=== PATIENT | female | born 1940 | race Two or more races ===

== ENCOUNTER 2025-03-31 23:32 | Inpatient (IN) | payer MEDICARE, MEDICAID ==
[~2025-03-31] VITALS: Ht 149.9 cm; Wt 52.4 kg
[2025-03-31] MEDS: hydrALAZINE HCL 20 MG/ML VL IV ONE (01:45)
--- NOTE | 2025-04-01 00:02 | ED.PDOC ---
HPI Comments 84-year-old female with a diabetes mellitus type 2, hypertension, dyslipidemia presented to the ER for the evaluation of occipital headache high blood pressure. Patient does alone and reports that the [facility] caregiver checked her blood pressure this morning, systolic was 160s, patient took her Coreg with a blood pressure went up to 190 systolic, therefore she 20 mg an hour back. Came into the ER, patient also reports taking lisinopril. She reports pressure-type headache in the occipital region for 1 hour, nonradiating, denies nausea/vomiting/photophobia/chest pain for shortness of breaths at this time. Denies CHF. Patient was also experiencing 5 episodes of diarrhea earlier this morning, nonbloody, reports mild abdominal pain. Patient seen and examined. Heart rate in 60s, sinus rhythm, blood pressure 220 systolic. Has 1+ pitting edema. Lungs are clear to auscultation. Home medication: Lisinopril, Coreg, metformin, atorvastatin Chief Complaint: High Blood Pressure Time Seen by MD: 23:36 Primary Care Provider: SHEFALI Hunter Notes: Nurses Notes Allergies: Coded Allergies: NO KNOWN ALLERGIES (Unverified , 03/31/25) Information Source: Patient Mode of Arrival: Ambulatory Severity: Mild Past Medical History PAST MEDICAL HISTORY: HTN Past Medical History (Other): Diabetes, hypertension, dyslipidemia Surgical History: Denies all surgeries OFFICE MACHINE TECHNICIAN History: No Pertinent OFFICE MACHINE TECHNICIAN History Family History Family History: Unknown Social History Smoker: Non-Smoker Lives In: Home Constitutional: denies: chills, diaphoresis, fatigue, fever, malaise, sweats, weakness, others EENTM: denies: blurred vision, double vision, ear bleeding, ear discharge, ear drainage, ear pain, ear ringing, eye pain, eye redness, hearing loss, mouth pain, mouth swelling, nasal discharge, nose bleeding, nose congestion, nose pain, photophobia, tearing, throat pain, throat swelling, voice changes, others Respiratory: denies: cough, hemoptysis, orthopnea, SOB at rest, shortness of breath, SOB with excertion, stridor, wheezing, others Cardiovascular: reports: palpitations Gastrointestinal: reports: abdominal pain, diarrhea Genitourinary: denies: abnormal vagina bleeding, burning, dyspareunia, dysuria, flank pain, frequency, hematuria, incontinence, pain, , vagina discharge, urgency, others Neurological: reports: headache Musculoskeletal: denies: back pain, gout, joint pain, joint swelling, muscle pain, muscle stiffness, neck pain, others Integumetry: denies: bruises, change in color, change in hair/nails, dryness, laceration, lesions, lumps, rash, wounds, others Allergic/Immunocompromised: denies: Difficulty Healing, Frequent Infections, Hives, Itching, others Hematologic/Lymphatic: denies: anemia, blood clots, easy bleeding, easy bruising, swollen glands, others Endocrine: denies: excessive hunger, excessive sweating, excessive thirst, excessive urination, flushing, intolerance to cold, intolerance to heat, unexplained weight gain, unexplained weight loss, others Psychiatric: denies: anxiety, bipolar disorder, depression, hopeless, panic disorder, schizophrenia, sleepless, suicidal, others Physical Exam General Appearance: No Apparent Distress, Normal HEENT: Normal ENT Inspection, Pharynx Normal, TMs Normal Neck: Full Range of Motion, Non-Tender, Normal, Normal Inspection Respiratory: Chest Non-Tender, Lungs Clear, No Accessory Muscle Use, No Respiratory Distress, Normal Breath Sounds Cardiovascular: No Edema, No JVD, No Murmur, No Gallop, Normal Peripheral Pulses, Regular Rate/Rhythm Breast Exam: Deferred Gastrointestinal: No Organomegaly, Non Tender, No Pulsatile Mass, Normal Bowel Sounds, Soft Genitalia: Deferred Pelvic: Deferred Rectal: Deferred Extremities: No calf tenderness, Normal capillary refill, Normal inspection, Normal range of motion, Non-tender, No pedal edema Musculoskeletal : Apperance: Normal Neurologic: Alert, cdl instructor II-XII nml as Tested, No Motor Deficits, Normal Affect, Normal Mood, No Sensory Deficits Cerebellar Function: Normal Reflexes: Normal Skin: Dry, Normal Color, Warm Lymphatic: No Adenopathy Was a procedure done? Was a procedure done?: No CP Differential Dx Differential Diagnosis: Heart Failure Differential Diagnosis: CHF, Medical NonCompliance Differential Diagnosis: Angina X-Ray, Labs, Meds, VS Vital Signs Date Time Temp Pulse Resp B/P (MAP) Pulse Ox O2 Delivery O2 Flow Rate FiO2 04/01/25 04:18 98/49 (65) 04/01/25 02:47 98.0 61 18 110/61 (77) 98 98.0 04/01/25 02:01 179/61 04/01/25 01:25 98.0 54 17 179 (100) 96 98.0 03/31/25 23:33 97.9 54 20 223/78 96 97.9 03/31/25 01:45 Lab Test 04/01/25 00:50 03/31/25 23:57 Range/Units Troponin I High Sensitivity 6 < 3 L </=34 ng/L White Blood Count 11.0 H 4.4-10.8 10^3/uL Red Blood Count 4.62 4.0-5.20 10^6/uL Hemoglobin 13.3 12.2-16.2 g/dL Hematocrit 40.2 36.0-46.0 % Mean Corpuscular Volume 86.9 80.0-100.0 fL Mean Corpuscular Hemoglobin 28.7 28.0-32.0 pg Mean Corpuscular Hemoglobin Concent 33.1 32.0-36.0 g/dL Red Cell Distribution Width 14.4 H 11.8-14.3 % Platelet Count 325 140-450 10^3/uL Mean Platelet Volume 8.7 6.9-10.8 fL Neutrophils (%) (Auto) 58.5 37.0-80.0 % Lymphocytes (%) (Auto) 28.4 10.0-50.0 % Monocytes (%) (Auto) 8.4 0.0-12.0 % Eosinophils (%) (Auto) 3.9 0.0-7.0 % Basophils (%) (Auto) 0.8 0.0-2.0 % Neutrophils # (Auto) 6.4 1.6-8.6 10 ^3/uL Lymphocytes # (Auto) 3.1 0.4-5.4 10 ^3/uL Monocytes # (Auto) 0.9 0-1.3 10 ^3/uL Eosinophils # (Auto) 0.4 0-0.8 10 ^3/uL Basophils # (Auto) 0.1 0-0.2 10 ^3/uL Nucleated Red Blood Cells 0.1 % Sodium Level 141 136-145 mmol/L Potassium Level 4.1 3.5-5.1 mmol/L Chloride Level 103 98-107 mmol/L Carbon Dioxide Level 26 20-31 mmol/L Anion Gap 12 5-15 Blood Urea Nitrogen 12 9-23 mg/dL Creatinine 0.69 0.550-1.02 mg/dL Glomerular Filtration Rate Calc 87 >90 mL/min BUN/Creatinine Ratio 17.4 10.0-20.0 Serum Glucose 92 74-106 mg/dL Calcium Level 9.6 8.7-10.4 mg/dL B-Type Natriuretic Peptide 46.61 0-100 pg/mL Thyroid Stimulating Hormone (TSH) 4.88 H 0.55-4.78 uIU/mL Current Medications Medications (Trade) Dose Ordered Sig/Mona Route Start Time Stop Time Status Last Admin Tramadol HCl (Ultram) 50 mg ONCE ONCE PO 04/01/25 01:15 04/01/25 02:15 DC 04/01/25 02:53 Clonidine HCl (Catapres Tablet) 0.2 mg ONCE ONCE PO 04/01/25 02:00 04/01/25 02:01 DC 04/01/25 02:01 X-Ray, Labs, Meds, VS Comment Head CT shows 1. No acute territorial infarct, intracranial hemorrhage, or mass effect. 2. Age-related involutional changes. Chronic microvascular changes. 3. Left sphenoid sinus disease. 4. If clinical symptoms persist, MRI may be beneficial in further evaluation. Chest x-ray shows The lungs are clear. The cardiomediastinal silhouette is unremarkable. No pleural effusion or pneumothorax. No acute osseous abnormality. Images Reviewed?: Images reviewed and evaluated by me Time of 1ST Reevaluation: 02:00 Reevaluation 1ST: Unchanged Consultation: PCP Patient Education/Counseling: Diagnosis, Treatment, Prognosis, Need For Follow Up Family Education/Counseling: Diagnosis, Treatment, Prognosis, Need For Follow Up SEPSIS Sepsis Screen Date sepsis recognized/suspect: Mar 31, 2025 Time Sepsis recognized/suspect: 2334 Recent Procedure: No On Antibiotic Therapy: No Respiratory Rate >20: No Heart Rate >90: No Temp<36 C (96.8 F) or >38.3 C: No SBP <90 or MAP <65 mmHG: No New Acute Mental Status Change: No Is the patient on CPAP, BIPAP,: No Physician Orders Electrocardigram (03/31/25 23:39) Chest Xray 1 View (03/31/25 23:39) Drafting Clerk (03/31/25 ) Head Without Contrast (03/31/25 23:53) Vital Signs Date Time Temp Pulse Resp B/P (MAP) Pulse Ox O2 Delivery O2 Flow Rate FiO2 04/01/25 04:18 98/49 (65) 04/01/25 02:47 98.0 61 18 110/61 (77) 98 98.0 04/01/25 02:01 179/61 04/01/25 01:25 98.0 54 17 179/61 (100) 96 98.0 03/31/25 23:33 97.9 54 20 223/78 96 97.9 03/31/25 01:45 179/61 Laboratory Tests Test 03/31/25 23:57 White Blood Count 11.0 10^3/uL (4.4-10.8) H Medications Medications Dose Ordered Sig/Mona Route Start Time Stop Time Status Last Admin Dose Admin Clonidine HCl 0.2 mg ONCE ONCE PO 04/01/25 02:00 04/01/25 02:01 DC 04/01/25 02:01 Tramadol HCl 50 mg ONCE ONCE PO 04/01/25 01:15 04/01/25 02:15 DC 04/01/25 02:53 Departure 1 Departure Time of Disposition: 02:30 Impression: Primary Impression: Hypertensive crisis without congestive heart failure Disposition: 30 STILL A PATIENT Condition: Stable Comments Patient will be admitted for management of antihypertensive regimen, uncontro lled hypothyroidism. Critical Care Note Critical Care Time?: No Stability Stability form required: No Heart Score Heart Score: Heart Score Response (Comments) Value History Slightly Suspicious 0 EKG N/A 0 Age >65 2 Risk Factors >3 or Hx ASHD 2 Troponin Normal limit 0 Total 4 MARV CLOUD RESIDENT Apr 01, 2025 00:02
--- NOTE | 2025-04-01 00:21 | DVH ---
CHEST RADIOGRAPH Indication: htn Technique: Single frontal view of the chest was obtained Comparison: None FINDINGS/IMPRESSION: The lungs are clear. The cardiomediastinal silhouette is unremarkable. No pleural effusion or pneumo thorax. No acute osseous abnormality.
--- NOTE | 2025-04-01 00:29 | DVH ---
CT HEAD WITHOUT CONTRAST INDICATION: htn crisis, headache EXAM DATE: 03/31/2025 11:55 PM COMPARISON: None RADIATION DOSE: CTDIvol: 49.01 mGy, DLP: 49.01 mGy*cm PROCEDURE: CT scans of the head were obtained from the vertex to the skull base. Sagittal and coronal reconstructions were provided. All CT scans at this medical facility are performed using dose modulation techniques as appropriate t o a performed exam including the following: Automated exposure control was utilized; adjustment of th e MA and/or KV according to patient size; and use of iterative reconstruction technique. FINDINGS: No acute territorial infarct, intracranial hemorrhage, or mass effect. There are global involutional changes with compensatory prominence of the ventricles and sulci. Patchy periventricular and subcorti carolann white matter hypoattenuation is nonspecific but may be related to small vessel ischemic disease. Bilateral lens implants. There is a fluid level within the left sphenoid sinus. Mild mucosal thicken ing within the right sphenoid sinus. The osseous structures are unremarkable. IMPRESSION: 1. No acute territorial infarct, intracranial hemorrhage, or mass effect. 2. Age-related involutional changes. Chronic microvascular changes. 3. Left sphenoid sinus disease. 4. If clinical symptoms persist, MRI may be beneficial in further evaluation.
[2025-04-01 00:34] LABS: Chloride 103 mmol/L (98-107); Potassium 4.1 mmol/L (3.5-5.1); Sodium 141 mmol/L (136-145)
[2025-04-01 00:35] LABS: Anion Gap 12 (5-15); Calcium 9.6 mg/dL (8.7-10.4); Carbon Dioxide 26 mmol/L (20-31); Hematocrit 40.2 % (36.0-46.0); Hemoglobin 13.3 g/dL (12.2-16.2); Mean Corpuscular Hemoglobin 28.7 pg (28.0-32.0); Mean Corpuscular Volume 86.9 fL (80.0-100.0); Nucleated Red Blood Cells % 0.1 %
[2025-04-01 00:40] LABS: BUN/Creatinine Ratio 17.4 (10.0-20.0); Blood Urea Nitrogen 12 mg/dL (9-23); Glucose 92 mg/dL (74-106)
[2025-04-01] MEDS ORDERED: DEXTROSE (50%) 50ML SYRG IV PRN (04:45)
[2025-04-01] MEDS ORDERED: MORPHINE SULFATE INJ 2 MG/ml SYRG IV PRN (04:45)
[2025-04-01] MEDS ORDERED: NITROGLYCERIN 0.4 MG SL TAB SL PRN (04:45)
[2025-04-01] MEDS ORDERED: ONDANSETRON HCL 4 MG/2 ML VIAL IV PRN (04:45)
--- NOTE | 2025-04-01 05:00 | DVHHP2 ---
History of Present Illness Reason for Visit: High blood pressure History of Present Illness 84-year-old female presents for evaluation of high blood pressure. Patient reports being compliant with her medication but it has been running high over the past three days. Today was running in the 180s and she developed an occipital headache. Denies blurred vision. She states that currently in the headache has subsided. Denies chest pain or shortness for breath. Past Medical History Hypertension, diabetes, dyslipidemia Past Surgical History Denies Family History Noncontributory Smoke: No ALCOHOL: none Drugs: None Lives: with Family Review of Systems Review of Systems Review of systems are currently negative otherwise dressing HPI. Allergies: Coded Allergies: NO KNOWN ALLERGIES (Unverified , 03/31/25) Medications Current Medications Medications Dose Ordered Sig/Mona Route Start Time Stop Time Status Last Admin Dose Admin Aspirin 81 mg DAILY PO 04/01/25 10:00 Atorvastatin Calcium 10 mg HS PO 04/01/25 22:00 Carvedilol 3.125 mg Q12HR PO 04/01/25 10:00 Lisinopril 20 mg DAILY PO 04/01/25 10:00 Hydralazine HCl 10 mg Q6HP PRN IV 04/01/25 04:45 Diagnostic Test (Pha) 1 strip ACHS 04/01/25 07:00 Insulin Human Regular ACHS SC 04/01/25 07:00 Dextrose 50 ml UD PRN IV 04/01/25 04:45 Ondansetron HCl 4 mg Q4HP PRN IV 04/01/25 04:45 Enoxaparin Sodium 40 mg DAILY SC 04/01/25 10:00 UNV Acetaminophen 650 mg Q6HP PRN PO 04/01/25 04:45 Nitroglycerin 0.4 mg Q5MINP PRN SL 04/01/25 04:45 Morphine Sulfate 2 mg Q30M PRN IV 04/01/25 04:45 Exam Vital Signs Vital Signs Date Time Temp Pulse Resp B/P (MAP) Pulse Ox O2 Delivery O2 Flow Rate FiO2 04/01/25 04:18 98/49 (65) 04/01/25 02:47 98.0 61 18 98 98.0 Exam Gen: 84-year-old female in mild distress Skin: Warm, dry, normal color and texture, no rash. HEENT: Normocephalic atraumatic, mucous membranes moist and pink. Neck: Cervical and supraclavicular nodes normal without enlargement, trachea is midline, thyroid gland is normal without masses. Pulmonary: Clear to auscultation and percussion bilaterally. Cardiac: Regular rate and rhythm. No murmur Abdomen: Soft, nontender, nondistended, bowel sounds present all 4 quadrants, no guarding, no rigidity, no organomegaly. Extremities: No cyanosis, clubbing, no edema Neuro: Cranial nerves II through XII grossly intact, normal affect and speech, no focal motor deficits. Labs/Xrays ORDERING PHYSICIAN: MARV CLOUD RESIDENT PROCEDURE(s): HWOCT - HEAD WITHOUT CONTRAST REASON: htn crisis, headache ORDER NUMBER(s): [id number], ACCESSION NUMBER(s): [id number] CT HEAD WITHOUT CONTRAST INDICATION: htn crisis, headache EXAM DATE: 03/31/2025 11:55 PM COMPARISON: None RADIATION DOSE: CTDIvol: 49.01 mGy, DLP: 49.01 mGy*cm PROCEDURE: CT scans of the head were obtained from the vertex to the skull base. Sagittal and coronal reconstructions were provided. All CT scans at this medical facility are performed using dose modulation techniques as appropriate to a performed exam including the following: Automated exposure control was utilized; adjustment of the MA and/or KV according to patient size; and use of iterative reconstruction technique. FINDINGS: No acute territorial infarct, intracranial hemorrhage, or mass effect. There are global involutional changes with compensatory prominence of the ventricles and sulci. Patchy periventricular and subcortical white matter hypoattenuation is nonspecific but may be related to small vessel ischemic disease. Bilateral lens implants. There is a fluid level within the left sphenoid sinus. Mild mucosal thickening within the right sphenoid sinus. The osseous structures are unremarkable. IMPRESSION: 1. No acute territorial infarct, intracranial hemorrhage, or mass effect. 2. Age-related involutional changes. Chronic microvascular changes. 3. Left sphenoid sinus disease. 4. If clinical symptoms persist, MRI may be beneficial in further evaluation. Labs Test 04/01/25 00:50 03/31/25 23:57 Range/Units Troponin I High Sensitivity 6 </=34 ng/L White Blood Count 11.0 H 4.4-10.8 10^3/uL Red Blood Count 4.62 4.0-5.20 10^6/uL Hemoglobin 13.3 12.2-16.2 g/dL Hematocrit 40.2 36.0-46.0 % Mean Corpuscular Volume 86.9 80.0-100.0 fL Mean Corpuscular Hemoglobin 28.7 28.0-32.0 pg Mean Corpuscular Hemoglobin Concent 33.1 32.0-36.0 g/dL Red Cell Distribution Width 14.4 H 11.8-14.3 % Platelet Count 325 140-450 10^3/uL Mean Platelet Volume 8.7 6.9-10.8 fL Neutrophils (%) (Auto) 58.5 37.0-80.0 % Lymphocytes (%) (Auto) 28.4 10.0-50.0 % Monocytes (%) (Auto) 8.4 0.0-12.0 % Eosinophils (%) (Auto) 3.9 0.0-7.0 % Basophils (%) (Auto) 0.8 0.0-2.0 % Neutrophils # (Auto) 6.4 1.6-8.6 10 ^3/uL Lymphocytes # (Auto) 3.1 0.4-5.4 10 ^3/uL Monocytes # (Auto) 0.9 0-1.3 10 ^3/uL Eosinophils # (Auto) 0.4 0-0.8 10 ^3/uL Basophils # (Auto) 0.1 0-0.2 10 ^3/uL Nucleated Red Blood Cells 0.1 % Sodium Level 141 136-145 mmol/L Potassium Level 4.1 3.5-5.1 mmol/L Chloride Level 103 98-107 mmol/L Carbon Dioxide Level 26 20-31 mmol/L Anion Gap 12 5-15 Blood Urea Nitrogen 12 9-23 mg/dL Creatinine 0.69 0.550-1.02 mg/dL Glomerular Filtration Rate Calc 87 >90 mL/min BUN/Creatinine Ratio 17.4 10.0-20.0 Serum Glucose 92 74-106 mg/dL Calcium Level 9.6 8.7-10.4 mg/dL B-Type Natriuretic Peptide 46.61 0-100 pg/mL Thyroid Stimulating Hormone (TSH) 4.88 H 0.55-4.78 uIU/mL SEPSIS Sepsis Screen Date sepsis recognized/suspect: Mar 31, 2025 Time Sepsis recognized/suspect: 2334 Recent Procedure: No On Antibiotic Therapy: No Respiratory Rate >20: No Heart Rate >90: No Temp<36 C (96.8 F) or >38.3 C: No SBP <90 or MAP <65 mmHG: No New Acute Mental Status Change: No Is the patient on CPAP, BIPAP,: No Physician Orders Electrocardigram (03/31/25 23:39) Chest Xray 1 View (03/31/25 23:39) Manager Clinical Services (03/31/25 ) Head Without Contrast (03/31/25 23:53) Aspirin Tablet (04/01/25 10:00) Atorvastatin (Lipitor) (04/01/25 22:00) Carvedilol Tablet (Coreg Tablet) (04/01/25 10:00) Lisinopril Tablet (Zestril Tablet) (04/01/25 10:00) Hydralazine Injection (Apresoline Inject (04/01/25 04:45) Basic Metabolic Panel (04/02/25 04:00) Glucose Blood (Accu-Chek Comfort Curve T (04/01/25 07:00) Insulin R (Human) (Insulin R) (04/01/25 07:00) Dextrose 50% Syringe (04/01/25 04:45) Admit (04/01/25 04:41) Ondansetron Hcl (Zofran) (04/01/25 04:45) Enoxaparin Sodium (Lovenox) (04/01/25 10:00) Cardiac Diet-2gna,Lofat,Lochol (04/01/25 Breakfast) Echo 2d Mode Cardiac Dop (04/01/25 04:41) Condition: Fair (04/01/25 04:41) Acetaminophen Tablet (Tylenol Tablet) (04/01/25 04:45) Bedrest With Bathroom Privileg (04/01/25 04:41) Nitroglycerin Sublingual (Ntrostat Subli (04/01/25 04:45) Morphine Sulfate Injection (04/01/25 04:45) Stat Ekg For Chest Pain (04/01/25 04:41) Notify Md Of Changes From Base (04/01/25 04:41) Service Order Clerk For 24 Hours (04/01/25 04:41) Emergency Dysrhythmia Protocol (04/01/25 04:41) Rhythm Strips Once Every Shift (04/01/25 04:41) Oxygen By Nasal Cannula (04/01/25 04:41) Vital Signs Date Time Temp Pulse Resp B/P (MAP) Pulse Ox O2 Delivery O2 Flow Rate FiO2 04/01/25 04:18 98/49 (65) 04/01/25 02:47 98.0 61 18 110/61 (77) 98 98.0 04/01/25 02:01 179/61 04/01/25 01:25 98.0 54 17 179/61 (100) 96 98.0 03/31/25 23:33 97.9 54 20 223/78 96 97.9 Laboratory Tests Test 03/31/25 23:57 White Blood Count 11.0 10^3/uL (4.4-10.8) H Medications Medications Dose Ordered Sig/Mona Route Start Time Stop Time Status Last Admin Dose Admin Clonidine HCl 0.2 mg ONCE ONCE PO 04/01/25 02:00 04/01/25 02:01 DC 04/01/25 02:01 0.2 MG Tramadol HCl 50 mg ONCE ONCE PO 04/01/25 01:15 04/01/25 02:15 DC 04/01/25 02:53 50 MG Assessment/Plan Assessment/Plan Assessment Hypertensive urgency Diabetes mellitus Dyslipidemia Plan Admit the patient to telemetry to the hospitalist Echocardiogram pending As needed antihypertensives Resume home medications Continue treatment per orders Plan discussed with: Patient My Orders Orders - BRAULIO JOLLY AGACNDerrek Procedure Category Date Status Time Aspirin Tablet PHA 04/01/25 In Process 10:00 Atorvastatin (Lipitor) PHA 04/01/25 In Process 22:00 Carvedilol Tablet PHA 04/01/25 In Process (Coreg Tablet) 10:00 Lisinopril Tablet PHA 04/01/25 In Process (Zestril Tablet) 10:00 Hydralazine Injection PHA 04/01/25 In Process (Apresoline Inject 04:45 Basic Metabolic Panel LAB 04/02/25 Verified 04:00 Glucose Blood PHA 04/01/25 In Process (Accu-Chek Comfort 07:00 Insulin R (Human) PHA 04/01/25 In Process (Insulin R) 07:00 Dextrose 50% Syringe PHA 04/01/25 In Process 04:45 Admit ADMIT 04/01/25 Transmitted 04:41 Ondansetron Hcl PHA 04/01/25 In Process (Zofran) 04:45 Enoxaparin Sodium PHA 04/01/25 Pending (Lovenox) 10:00 Cardiac DIET 04/01/25 Transmitted Diet-2gna,Lofat,Lochol Breakfast Echo 2d Mode Cardiac US 04/01/25 Logged DOP 04:41 Condition: Fair [facility] 04/01/25 In Process 04:41 Acetaminophen Tablet [facility] 04/01/25 In Process (Tylenol Tablet) 04:45 Bedrest With Bathroom [facility] 04/01/25 In Process Privileg 04:41 Nitroglycerin [facility] 04/01/25 In Process Sublingual (Ntrostat 04:45 Morphine Sulfate [facility] 04/01/25 In Process Injection 04:45 Stat Ekg For Chest [facility] 04/01/25 In Process Pain 04:41 Notify Md Of Changes [facility] 04/01/25 In Process From Base 04:41 Service Order Clerk For [facility] 04/01/25 In Process 24 Hours 04:41 Emergency Dysrhythmia [facility] 04/01/25 In Process Protocol 04:41 Rhythm Strips Once [facility] 04/01/25 In Process Every Shift 04:41 Oxygen By Nasal RT 04/01/25 Transmitted Cannula 04:41 Date of Service: Apr 01, 2025 Billing Provider: BRAULIO JOLLY Common Visit Codes: [id number] INP/OBS CARE (HIGH) BRAULIO JOLLY Apr 01, 2025 05:00
[2025-04-01] MEDS: ACCU-CHEK COMFORT CURVE STRIP VI SCH (06:41)
[2025-04-01] MEDS: InsuLIN REG 1unit/0.01ml Soln (100units/ml) SC SCH (06:52)
[2025-04-01 08:00] VITALS: PULSE 44; RESP 12; O2SAT 95
[2025-04-01] MEDS: CARVEDILOL 3.125 MG TAB PO SCH (10:00)
[2025-04-01] MEDS: ENOXAPARIN SOD 40 MG/0.4 ML SYRINGE SC SCH (10:00)
[2025-04-01] MEDS: LISINOPRIL 20 MG TAB PO SCH (10:00)
[2025-04-01 13:15] VITALS: PULSE 53
[2025-04-01 13:30] VITALS: PULSE 76; RESP 18; O2SAT 94
[2025-04-01] MEDS ORDERED: EZET-10 PO (14:37)
[2025-04-01] MEDS ORDERED: SIMV10TA20 PO (14:37)
[2025-04-01] MEDS ORDERED: DICL1GEL73 TOP (14:37)
[2025-04-01] MEDS ORDERED: CHOL50007 PO (14:37)
[2025-04-01] MEDS ORDERED: LIDO1PAD55 TOP (14:37)
[2025-04-01] MEDS ORDERED: LISI20TA56 PO (14:37)
[2025-04-01] MEDS ORDERED: METF-370 PO (14:37)
[2025-04-01] MEDS ORDERED: ASPI-325 PO (14:37)
[2025-04-01] MEDS ORDERED: CARV3.1240 PO (14:37)
--- NOTE | 2025-04-01 15:52 | DVHPN2 ---
Subjective Patient denies any symptoms. Reviewed: Care Plan, H&P, Labs, Medications Changes from previous H/P or p: No Changes General: Per HPI Objective Vitals Vital Signs Date Time Temp Pulse Resp B/P (MAP) Pulse Ox O2 Delivery O2 Flow Rate FiO2 04/01/25 12:00 54 16 141/52 (81) 93 04/01/25 10:00 97.7 97.7 04/01/25 08:00 Room Air* 0 21 General Appearance: Alert, Oriented X3, Cooperative, No acute distress HEENT: Atraumatic, PERRLA Lungs: Clear to auscultation, Normal air movement Cardiovascular: Normal S1, Normal S2 Abdomen: Normal bowel sounds, Soft, No tenderness, No hepatospenomegaly Rectal: Normal inspection Musculoskeletal: Normal sensory function, Normal motor function Neuro: Normal gait, Normal speech Skin: Dry, Intact Psych/Mental Status: Mental status NL, Mood NL Medications Current Medications Medications Dose Ordered Sig/Mona Route Start Time Stop Time Status Last Admin Dose Admin Aspirin 81 mg DAILY PO 04/01/25 10:00 04/01/25 12:55 81 MG Atorvastatin Calcium 10 mg HS PO 04/01/25 22:00 Carvedilol 3.125 mg Q12HR PO 04/01/25 10:00 Lisinopril 20 mg DAILY PO 04/01/25 10:00 Hydralazine HCl 10 mg Q6HP PRN IV 04/01/25 04:45 Diagnostic Test (Pha) 1 strip ACHS 04/01/25 07:00 04/01/25 12:44 1 STRIP Insulin Human Regular ACHS SC 04/01/25 07:00 04/01/25 12:57 3 UNITS Dextrose 50 ml UD PRN IV 04/01/25 04:45 Ondansetron HCl 4 mg Q4HP PRN IV 04/01/25 04:45 Enoxaparin Sodium 40 mg DAILY SC 04/01/25 10:00 Acetaminophen 650 mg Q6HP PRN PO 04/01/25 04:45 Nitroglycerin 0.4 mg Q5MINP PRN SL 04/01/25 04:45 Morphine Sulfate 2 mg Q30M PRN IV 04/01/25 04:45 Laboratory Results Laboratory Tests 03/31/25 23:57 Chemistry Test 03/31/25 23:57 Calcium Level 9.6 mg/dL (8.7-10.4) Cardiac Markers Test 03/31/25 23:57 B-Type Natriuretic Peptide 46.61 pg/mL (0-100) HgA1c, TSH Test 03/31/25 23:57 Thyroid Stimulating Hormone (TSH) 4.88 uIU/mL (0.55-4.78) H Labs and/or images reviewed: Labs reviewed by me, Image(s) reviewed by me Assessment/Plan Assessment/Plan Impression: -hypertensive crisis -bradycardia -diabetes mellitus -dyslipidemia Plan: -stop carvedilol, continue lisinopril . Add amlodipine 10 mg p.o. daily -echocardiogram, pending results -regular insulin sliding scale -continue statin -reassess for discharge in a.m. once blood pressure and heart rate has improved Total time spent with patient discussing and formulating plan of care: 35 minutes. This medical document was created using an electronic medical record system with [employer] dictation system. Although this document has been carefully reviewed, there may still be some phonetic and typographical errors. These areas are purely typographical due to imperfections of the software programs, and do not reflect any compromise in the patient's medical care. Plan discussed with: Patient, Other (RN) My Orders Orders - FADI BENAVIDEZ NP Procedure Category Date Status Time Urinalysis LAB 04/01/25 Logged 15:07 Date of Service: Apr 01, 2025 Billing Provider: FADI BENAVIDEZ NP Common Visit Codes: [id number] INP/OBS CARE(HIGH) FADI BENAVIDEZ NP Apr 01, 2025 15:52
[2025-04-01 18:32] LABS: Urine Budding Yeast OCCASIONAL /hpf (None Seen); Urine Protein, UAD Negative (Negative)
[2025-04-01 20:00] VITALS: PULSE 58; RESP 16; O2SAT 97
[2025-04-01 21:00] VITALS: BP 142/61; PULSE 54; RESP 17; TEMP 97.5; O2SAT 94
[2025-04-01] MEDS: ATORVASTATIN 20 MG TAB PO SCH (21:49)
[2025-04-02] VITALS (8 sets, daily range): BP systolic 127–171; BP diastolic 66–83; PULSE 54–111; RESP 17–20; TEMP 97.9–98.8; O2SAT 93–96
[2025-04-02 07:30] LABS: Chloride 104 mmol/L (98-107); Potassium 4.0 mmol/L (3.5-5.1); Sodium 140 mmol/L (136-145)
[2025-04-02 07:31] LABS: Anion Gap 10 (5-15); Calcium 9.1 mg/dL (8.7-10.4); Carbon Dioxide 26 mmol/L (20-31)
[2025-04-02 07:36] LABS: BUN/Creatinine Ratio 17.3 (10.0-20.0); Blood Urea Nitrogen 13 mg/dL (9-23)
[2025-04-02 07:41] LABS: Glucose 129 mg/dL (74-106)
[2025-04-02] MEDS: hydrALAZINE HCL 20 MG/ML VL IV PRN (11:17)
--- NOTE | 2025-04-02 13:30 | DVHDS2 ---
Discharge Summary Date of Admission Apr 01, 2025 at 04:41 Date of Discharge: Apr 02, 2025 Admitting Diagnosis Hypertensive crisis with congestive heart failure Labs/Diagnostic Data: Laboratory Results Test 04/02/25 11:10 04/02/25 06:40 04/01/25 17:51 04/01/25 00:50 POC Glucose 135 mg/dl (70-106) Sodium Level 140 mmol/L (136-145) Potassium Level 4.0 mmol/L (3.5-5.1) Chloride Level 104 mmol/L (98-107) Carbon Dioxide Level 26 mmol/L (20-31) Anion Gap 10 (5-15) Blood Urea Nitrogen 13 mg/dL (9-23) Creatinine 0.75 mg/dL (0.550-1.02) Glomerular Filtration Rate Calc 79 mL/min (>90) BUN/Creatinine Ratio 17.3 (10.0-20.0) Serum Glucose 129 mg/dL (74-106) Calcium Level 9.1 mg/dL (8.7-10.4) Urine Color Colorless (Yellow) Urine Clarity Clear (Clear) Urine pH 6.5 (5.0-9.0) Urine Specific [place] 1.005 (1.001-1.035) Urine Protein Negative (Negative) Urine Ketones Negative (Negative) Urine Blood Negative /uL (Negative) Urine Nitrite Negative (Negative) Urine Bilirubin Negative (Negative) Urine Urobilinogen Normal mg/dL (Negative) Urine Leukocyte Esterase Negative /uL (Negative) Urine RBC None seen /hpf (0 - 4) Urine Microscopic WBC 1 /HPF (0-5) Urine Squamous Epithelial Cells Few /hpf (<5) Urine Bacteria Mod /hpf (None Seen) Urine Yeast (Budding) Occasional /hpf (None Urine Glucose Normal mg/dL (Normal) Troponin I High Sensitivity 6 ng/L (</=34) Test 03/31/25 23:57 White Blood Count 11.0 10^3/uL (4.4-10.8) Red Blood Count 4.62 10^6/uL (4.0-5.20) Hemoglobin 13.3 g/dL (12.2-16.2) Hematocrit 40.2 % (36.0-46.0) Mean Corpuscular Volume 86.9 fL (80.0-100.0) Mean Corpuscular Hemoglobin 28.7 pg (28.0-32.0) Mean Corpuscular Hemoglobin Concent 33.1 g/dL (32.0-36.0) Red Cell Distribution Width 14.4 % (11.8-14.3) Platelet Count 325 10^3/uL (140-450) Mean Platelet Volume 8.7 fL (6.9-10.8) Neutrophils (%) (Auto) 58.5 % (37.0-80.0) Lymphocytes (%) (Auto) 28.4 % (10.0-50.0) Monocytes (%) (Auto) 8.4 % (0.0-12.0) Eosinophils (%) (Auto) 3.9 % (0.0-7.0) Basophils (%) (Auto) 0.8 % (0.0-2.0) Neutrophils # (Auto) 6.4 10 ^3/uL (1.6-8.6) Lymphocytes # (Auto) 3.1 10 ^3/uL (0.4-5.4) Monocytes # (Auto) 0.9 10 ^3/uL (0-1.3) Eosinophils # (Auto) 0.4 10 ^3/uL (0-0.8) Basophils # (Auto) 0.1 10 ^3/uL (0-0.2) Nucleated Red Blood Cells 0.1 % B-Type Natriuretic Peptide 46.61 pg/mL (0-100) Thyroid Stimulating Hormone (TSH) 4.88 uIU/mL (0.55-4.78) Other Laboratory Tests 04/02/25 06:40 03/31/25 23:57 Brief Hx & Hospital Course: HPI Comments 84-year-old female with a diabetes mellitus type 2, hypertension, dyslipidemia presented to the ER for the evaluation of occipital headache high blood pressure. Patient does alone and reports that the [facility] caregiver checked her blood pressure this morning, systolic was 160s, patient took her Coreg with a blood pressure went up to 190 systolic, therefore she 20 mg an hour back. Came into the ER, patient also reports taking lisinopril. She reports pressure-type headache in the occipital region for 1 hour, nonradiating, denies nausea/vomiting/photophobia/chest pain for shortness of breaths at this time. Denies CHF. Course of hospitalization: Patient's heart rate was decreasing as low as 44 beats per minute. Discussion with the patient reveals that she has had problems with hypertension as well as low heart rate in the past. Patient's carvedilol will be held in the hospital. Patient was started on antihypertensives including amlodipine 10 mg p.o. daily as well as lisinopril 20 mg p.o. daily. Patient's blood pressure remained somewhat uncontrolled today, for which the patient received IV hydralazine which did help the patient's blood pressure but also had a side effect of elevated heart rate up to 110 beats per minute. Echocardiogram reveals normal ejection fraction. Patient will be discharged home with lisinopril 40 mg p.o. daily as well as amlodipine 10 mg p.o. daily with the patient instructed to stop taking carvedilol and follow up with her PCP in 1-2 weeks as well as her underwriting support specialist at next available appointment. Patient is agreeable with discharge plan. All questions answered. Physical examination General: Alert and Oriented x3. No acute distress. Well-nourished. Eyes: EOMI. Anicteric. HENT: Moist mucous membranes. Lungs: Clear to auscultation bilaterally. No accessory muscle use. Cardiovascular: Regular rate and rhythm. No murmur. No JVD. Abdomen: Soft, non-tender and non-distended. No palpable masses. Extremities: No edema. Non-tender. Skin: No rashes or lesions. Warm. Neurologic: No focal neurological deficits. CN II-XII grossly intact, but not individually tested. Psychiatric: Cooperative. Appropriate mood and affect. Total time spent with patient discussing and formulating plan of care: 35 minutes. This medical document was created using an electronic medical record system with [employer] dictation system. Although this document has been carefully reviewed, there may still be some phonetic and typographical errors. These areas are purely typographical due to imperfections of the software programs, and do not reflect any compromise in the patient's medical care. Condition at Discharge: Fair Final Diagnosis/Problems List Accelerated hypertension, bradycardia -hypertensive crisis -bradycardia -diabetes mellitus -dyslipidemia Discharge Disposition: Home Discharge Instruct/Medications Diet: Cardiac 2g Na,low cholest Activity: No Restrictions, As Tolerated Follow Up/Referral: Follow up with PCP, Dr. Santana in one week Follow up with Cardiology at next available appointment Medications: Stop carvedilol given persistent bradycardia Amlodipine 10 mg p.o. daily Increase lisinopril to 40 mg p.o. daily Scheduled Aspirin (Aspirin Low Dose), 1 TAB PO DAILY, (Reported) Carvedilol (Carvedilol), 1 TAB PO BID, (Reported) Cholecalciferol (Vitamin D3), 1 CAP PO DAILY, (Reported) Ezetimibe (Ezetimibe), 1 TAB PO DAILY, (Reported) Lisinopril (Lisinopril), 1 TAB PO BID, (Reported) Metformin Hydrochloride (Metformin Hcl), 1 TAB PO BID, (Reported) Scheduled PRN Diclofenac Sodium (Topical) (Diclofenac Sodium), GM TOP DAILYPRN PRN for pain, (Reported) Miscellaneous Medications Lidocaine (Lidocaine), TOP, (Reported) Simvastatin (Simvastatin), 1 TAB PO, (Reported) 36 Discharge Statement: "Patient was advised to return to the ER or call 911 if any headaches, dizziness, shortness of breath, chest pain, abdominal pain, bleeding, fevers, or worsening of medical condition. Patient was counseled about treatment plan, medications, possible side effects, patientverbalized understanding. All questions were answered to the best of my ability. This discharge took greater then 30 minutes in planning, reviewing documentation, counseling the patient, and discussing with other team members." ASSESSMENT ASSESSMENT Assessment Accelerated hypertension, bradycardia Date of Service: Apr 02, 2025 Billing Provider: FADI BENAVIDEZ NP Common Visit Codes: 21850-HHC/OBS DISCH DAY >30min FADI BENAVIDEZ NP Apr 02, 2025 13:30
[2025-04-02] MEDS: LISINOPRIL 20 MG TAB PO ONE (13:43)
[2025-04-02] MEDS ORDERED: LISI20TA56 PO (15:29)
[2025-04-02] MEDS ORDERED: AMLO1TAB23 PO (15:29)
[2025-04-02] MEDS: CARVEDILOL 3.125 MG TAB PO ONE (15:48)
[2025-04-02] MEDS: ACETAMINOPHEN 325 MG TAB PO PRN (18:07)
[2025-04-02] MEDS ORDERED: ESTR0.3T PO (20:55)
[2025-04-03] VITALS (8 sets, daily range): BP systolic 134–157; BP diastolic 69–86; PULSE 69–112; RESP 16–20; TEMP 97.8–98.6; O2SAT 93–97
[2025-04-03] MEDS: LISINOPRIL 20 MG TAB PO SCH (10:22)
--- NOTE | 2025-04-03 11:19 | DVHSR ---
APPROVED REPORT EXAM: Two-dimensional and M-mode echocardiogram with Doppler and color Doppler. Blood Pressure: 95/49 mmHg INDICATION Hypertension RISK FACTORS Height: 4' 11", DIMENSIONS LVDd4.4 (3.8-5.7cm)LA (2D)2.8 (1.9-4.0cm)Aortic Root2.9 (2.0-3.7cm) LVDs3.1 (2.5-4.0cm)LA (MM) (1.9-4.0cm)Aortic Cusp Exc1.8 (1.5-2.0cm) EF (%) 57.0 (55-70%)Rt. Atrium3.1 (1.9-4.0cm)Asc. Aorta cm IVSd1.1 (0.7-1.1cm)RV (D) (1.8-2.4cm) PWd1.0 (0.7-1.1cm) Mitral Valve MitralMitral Stenosis E wave0.80m/sMV Mean GR.mmHg A wave1.00m/sMV Peak GR.mmHg E/A ratio0.82D MVAcm2 Aortic Valve Aortic ValveAortic Stenosis V10.90m/Ma[place] Mean GR.3mmHg V21.20m/[place] Peak GR.6mmHg LVOT Diameter2.0 (1.8-2.4cm)Doppler AVA2.36cm2 Pulmonic Valve V20.70m/s Tricuspid Valve TR Velocity2.30m/s [id number] Other Information Quality : Technically LimitedRhythm : Technically limited study due to body habitus. Conclusion Technically good study. Sinus rhythm. Mild left atrial enlargement. Valves are normal. EF of 60% with normal RV function. Mild TR. [id number] aortic insufficiency. No pericardial effusion masses or vegetations.
--- NOTE | 2025-04-03 15:35 | DVHPN2 ---
Subjective Patient denies any symptoms. Reviewed: Care Plan, H&P, Labs, Medications Changes from previous H/P or p: No Changes General: Per HPI Objective Vitals Vital Signs Date Time Temp Pulse Resp B/P (MAP) Pulse Ox O2 Delivery O2 Flow Rate FiO2 04/03/25 10:22 155/80 04/03/25 09:00 97.9 83 18 96 97.9 04/03/25 08:00 Room Air* 0 21 Intake/Output Intake and Output 04/03/25 07:00 Intake Total 600 ml Balance 600 ml Intake Oral 600 ml # Voids 8 General Appearance: Alert, Oriented X3, Cooperative, No acute distress HEENT: Atraumatic, PERRLA Lungs: Clear to auscultation, Normal air movement Cardiovascular: Normal S1, Normal S2 Abdomen: Normal bowel sounds, Soft, No tenderness, No hepatospenomegaly Rectal: Normal inspection Musculoskeletal: Normal sensory function, Normal motor function Neuro: Normal gait, Normal speech Skin: Dry, Intact Psych/Mental Status: Mental status NL, Mood NL Medications Current Medications Medications Dose Ordered Sig/Mona Route Start Time Stop Time Status Last Admin Dose Admin Aspirin 81 mg DAILY PO 04/01/25 10:00 04/03/25 10:22 81 MG Atorvastatin Calcium 10 mg HS PO 04/01/25 22:00 04/02/25 21:44 10 MG Diagnostic Test (Pha) 1 strip ACHS 04/01/25 07:00 04/03/25 11:39 1 STRIP Insulin Human Regular ACHS SC 04/01/25 07:00 04/03/25 11:41 3 UNITS Dextrose 50 ml UD PRN IV 04/01/25 04:45 Ondansetron HCl 4 mg Q4HP PRN IV 04/01/25 04:45 Enoxaparin Sodium 40 mg DAILY SC 04/01/25 10:00 04/03/25 10:23 40 MG Acetaminophen 650 mg Q6HP PRN PO 04/01/25 04:45 04/03/25 08:55 650 MG Nitroglycerin 0.4 mg Q5MINP PRN SL 04/01/25 04:45 Lisinopril 40 mg DAILY PO 04/03/25 10:00 04/03/25 10:22 40 MG Metformin HCl 500 mg BIDWM PO 04/03/25 18:00 Nifedipine 60 mg DAILY PO 04/04/25 10:00 Laboratory Results Laboratory Tests 03/31/25 23:57 04/02/25 06:40 Urinalysis Test 04/01/25 17:51 Urine Color Colorless (Yellow) Urine Clarity Clear (Clear) Urine pH 6.5 (5.0-9.0) Urine Specific [place] 1.005 (1.001-1.035) Urine Protein Negative (Negative) Urine Ketones Negative (Negative) Urine Blood Negative /uL (Negative) Urine Nitrite Negative (Negative) Urine Bilirubin Negative (Negative) Urine Urobilinogen Normal mg/dL (Negative) Urine Leukocyte Esterase Negative /uL (Negative) Urine RBC None seen /hpf (0 - 4) Urine Microscopic WBC 1 /HPF (0-5) Urine Squamous Epithelial Cells Few /hpf (<5) Urine Bacteria Mod /hpf (None Seen) H Urine Yeast (Budding) Occasional /hpf (None Urine Glucose Normal mg/dL (Normal) Labs and/or images reviewed: Labs reviewed by me, Image(s) reviewed by me Assessment/Plan Assessment/Plan Impression: -hypertensive crisis -bradycardia -diabetes mellitus -dyslipidemia Plan: Events: Patient's discharge held given tachycardia and elevated blood pressure. -change amlodipine to Procardia, continue lisinopril 40 mg p.o. daily -echocardiogram: Results discussed with the patient -regular insulin sliding scale -continue statin -reassess for discharge in a.m. once blood pressure and heart rate has improved Total time spent with patient discussing and formulating plan of care: 35 minutes. This medical document was created using an electronic medical record system with [employer] dictation system. Although this document has been carefully reviewed, there may still be some phonetic and typographical errors. These areas are purely typographical due to imperfections of the software programs, and do not reflect any compromise in the patient's medical care. Plan discussed with: Patient, Other (RN) My Orders Orders - FADI BENAIVDEZ NP Procedure Category Date Status Time Hemoglobin A1c LAB 04/03/25 Logged 15:20 Metformin PHA 04/03/25 In Process Hydrochloride 18:00 Nifedipine Er PHA 04/04/25 In Process (Procardia Xl 10:00 * [employer] Project Manager CONS 04/03/25 Verified Consult Date of Service: Apr 03, 2025 Billing Provider: FADI BENAVIDEZ NP Common Visit Codes: [id number] INP/OBS CARE(HIGH) FADI BENAVIDEZ PRODUCT MANAGENT INTERN Apr 03, 2025 15:35
[2025-04-04 01:00] VITALS: BP 119/67; PULSE 90; RESP 16; TEMP 98.1; O2SAT 98
[2025-04-04 05:00] VITALS: BP 111/60; PULSE 94; RESP 17; TEMP 97.8; O2SAT 97
[2025-04-04 08:00] VITALS: PULSE 83
[2025-04-04 08:55] VITALS: BP 133/76; PULSE 101; RESP 18; TEMP 98.5; O2SAT 93
[2025-04-04 09:00] VITALS: BP 133/76; PULSE 101; RESP 18; TEMP 98.5; O2SAT 93
[2025-04-04] MEDS ORDERED: NIFE1TAB36 PO (13:59)
== END 2025-04-04 10:00 | disposition home health service (06) | DRG 305 ==
LOC: ER 23:32 → OVERFLOW 04-01 04:41 → TELE-WESTW 04-01 13:23
PROVIDERS: ADMIT Nurse Practitioner Acute Care; ATTEND Nurse Practitioner Acute Care
DX: I16.9 Hypertensive crisis, unspecified (principal); R00.1 Bradycardia, unspecified; E11.9 Type 2 diabetes mellitus without complications; I10 Essential (primary) hypertension; E78.5 Hyperlipidemia, unspecified; Z79.899 Other long term (current) drug therapy
CPT/HCPCS: 36415; 80048; 81001; 82962; 83036; 83880; 84443; 84484; 85025; 93306; G0378; J1815